=== PATIENT | female | born 1995 | race Two or more races ===

== ENCOUNTER 2018-11-21 11:00 | Outpatient (CLI) | payer OTHER | END 2018-11-21 11:06 | disposition home or self-care (01) | LOC: LAB 11:00 | DX: Z11.3 Encounter for screening for infections with a predominantly sexual mode of transmission (principal) ==

== ENCOUNTER 2018-11-27 10:39 | Outpatient (CLI) | payer OTHER | END 2018-11-27 10:42 | disposition home or self-care (01) | LOC: SONOGRAMA 10:39 → MAMO-SONO 10:45 | DX: Z34.00 Encounter for supervision of normal first pregnancy, unspecified trimester (principal) ==

== ENCOUNTER 2019-02-22 10:56 | Outpatient (CLI) | payer OTHER | END 2019-02-22 17:08 | disposition home or self-care (01) | LOC: LAB 10:56 | DX: Z34.00 Encounter for supervision of normal first pregnancy, unspecified trimester (principal) ==

== ENCOUNTER 2019-04-02 12:24 | Outpatient (CLI) | payer OTHER | END 2019-04-02 12:29 | disposition home or self-care (01) | LOC: LAB 12:24 | DX: Z34.00 Encounter for supervision of normal first pregnancy, unspecified trimester (principal) ==

== ENCOUNTER 2019-04-09 11:14 | Inpatient (IN) | payer OTHER ==
[~2019-04-09] VITALS: Ht 157.5 cm; Wt 82.6 kg
[2019-05-07] MEDS ORDERED: PRENATAL CAPLE1 EAC1 PO (11:25)
== END 2019-05-09 17:19 | disposition home or self-care (01) | DRG 807 ==
LOC: OB/GYN 04-23 13:45 → LDR 05-07 05:35 → OB/GYN 05-07 22:21
PROVIDERS: ADMIT Specialist
PROC: 10E0XZZ Delivery of Products of Conception, External Approach (ICD-10-PCS; principal; 2019-05-07)
PROC: 0W8NXZZ Division of Female Perineum, External Approach (ICD-10-PCS; 2019-05-07)
PROC: 3E033VJ Introduction of Other Hormone into Peripheral Vein, Percutaneous Approach (ICD-10-PCS; 2019-05-07)
PROC: 4A1HXCZ Monitoring of Products of Conception, Cardiac Rate, External Approach (ICD-10-PCS; 2019-05-07)
DX: O80 Encounter for full-term uncomplicated delivery (principal); Z37.0 Single live birth; Z3A.40 40 weeks gestation of pregnancy

== ENCOUNTER 2020-08-04 08:19 | Outpatient (CLI) | payer OTHER ==
[~2020-08-04 08:19] MED LIST: PRENATAL CAPLE1 EAC1 PO
== END 2020-08-04 08:20 | disposition home or self-care (01) ==
LOC: PPH VACUNA 08:19
DX: Z23 Encounter for immunization (principal)

== ENCOUNTER 2021-02-19 14:27 | Outpatient (CLI) | payer OTHER | END 2021-02-19 15:00 | disposition home or self-care (01) | LOC: RAD 14:27 | DX: R07.89 Other chest pain (principal); Z02.79 Encounter for issue of other medical certificate ==

== ENCOUNTER 2021-07-14 09:00 | Outpatient (CLI) | payer OTHER | END 2021-07-14 09:30 | disposition home or self-care (01) | LOC: PPH VACUNA 09:00 | PROVIDERS: ATTEND Emergency Medicine Pediatric Emergency Medicine | DX: Z23 Encounter for immunization (principal) | CPT/HCPCS: 90686; G0008 ==

== ENCOUNTER 2021-08-27 09:00 | Outpatient (CLI) | payer OTHER | END 2021-08-27 09:15 | disposition home or self-care (01) | LOC: PPH VACUNA 09:00 | PROVIDERS: ATTEND Emergency Medicine Pediatric Emergency Medicine | DX: Z23 Encounter for immunization (principal) ==

== ENCOUNTER 2023-09-08 13:45 | Inpatient (IN) | payer OTHER ==
[~2023-09-08] VITALS: Ht 157.5 cm; Wt 86.2 kg
[2023-09-11 02:22] LABS: HEMOGLOBIN 12.2 g/dL (12.0-15.00); MEAN CELL VOLUME 79.6 fL (80.00-100.00); MEAN CORPUSCULAR HEMOGLOBIN 26.3 pg (27.00-32.0); PLATELET COUNT 265 K/uL (150-450); RED BLOOD COUNT 4.65 M/uL (4.00-6.00); RED CELL DISTRIBUTION WIDTH 15.3 % (11.5-14.5)
[2023-09-11 02:37] LABS: INR < 0.93; PARTIAL THROMBOPLASTIN TIME 29.5 SECONDS (22.0-34.0); PROTHROMBIN TIME 9.7 SECONDS (9.0-11.5)
[2023-09-11 02:41] LABS: ALBUMIN 2.8 gm/dL (3.4-5.0); BILIRUBIN TOTAL 0.32 mg/dL (0.3-1.2); CALCIUM 9.4 mg/dL (8.5-10.1); CREATININE SERUM 0.63 mg/dL (0.55-1.02); GFR 110.95; GLOBULINA 3.8 G/DL (2.4-3.5); POTASSIUM 4.06 mEq/L (3.5-5.1); TOTAL PROTEIN 6.6 gm/dL (6.4-8.2)
[2023-09-11 08:11] LABS: HEMATOCRIT 36.9 % (36.0-45.00); HEMOGLOBIN 12.1 g/dL (12.0-15.00); MEAN CELL VOLUME 79.3 fL (80.00-100.00); MEAN CORPUSCULAR HEMOGLOBIN 26.1 pg (27.00-32.0); MEAN CORPUSCULAR HGB CONC 32.9 g/dl (32.0-36.0); PLATELET COUNT 263 K/uL (150-450); RED BLOOD COUNT 4.66 M/uL (4.00-6.00); RED CELL DISTRIBUTION WIDTH 15.1 % (11.5-14.5)
[2023-09-11 14:12] LABS: URINE APPEARANCE Cloudy; URINE BILIRRUBIN Small (NEGATIVE); URINE BLOOD Large; URINE COLOR Red; URINE GLUCOSE Negative (NEGATIVE); URINE LEUKOCYTE Moderate; URINE NITRATE Negative; URINE PROTEIN 30 (NEGATIVE); URINE UROBILINOGEN 0.2 E.U./dl
[2023-09-11 14:16] LABS: URINE BACTERIA 418.3 uL (0.0-1933); URINE EPITHELIAL CELLS 33.5 uL (0.0-38.8); URINE WBC 205.4 uL (0.0-23.2)
[2023-09-11 14:25] LABS: URINE RBC > 10558.9 uL (0.0-20.8)
== END 2023-09-13 13:28 | disposition home or self-care (01) | DRG 807 ==
LOC: OB/GYN 09-11 01:43 → LDR 09-11 01:43 → OB/GYN 09-11 04:11 → SURG 09-20 13:45
PROVIDERS: Obstetrics & Gynecology; ADMIT Specialist; ATTEND Specialist
PROC: 10E0XZZ Delivery of Products of Conception, External Approach (ICD-10-PCS; principal; 2023-09-11)
PROC: 4A1HXCZ Monitoring of Products of Conception, Cardiac Rate, External Approach (ICD-10-PCS; 2023-09-11)
DX: O80 Encounter for full-term uncomplicated delivery (principal); Z37.0 Single live birth; Z3A.38 38 weeks gestation of pregnancy; Z20.822 Contact with and (suspected) exposure to COVID-19